=== PATIENT | female | born 1955 | race Caucasian/White ===

== ENCOUNTER 2019-11-11 11:13 | Inpatient (IN) | payer MEDICARE, OTHER ==
[~2019-11-11] VITALS: Ht 175.3 cm; Wt 83.7 kg
[2019-11-11] MEDS ORDERED: dilTIAZem 25 MG/5 ML VIAL IV ONE ×2 (11:15→11:30)
[2019-11-11] MEDS ORDERED: SODIUM CHLORIDE 0.9% 1,000 ML IV ONE (11:23)
[2019-11-11] MEDS ORDERED: AMIODARONE HCL 150 MG in D5W 5% 100 ML IV ONE (11:30)
[2019-11-11] MEDS ORDERED: AMIODARONE HCL 900 MG in DEXTROSE 500 ML IV SCH ×2 (11:30→17:30)
[2019-11-11] MEDS ORDERED: LORazepam 2MG/ML-1ML VIAL IV ONE (11:30)
[2019-11-11 11:44] LABS: Basophils # (auto) 0 10 ^3/uL (0-0.2); Basophils % (auto) 0.8 % (0.0-2.0); Eosinophils # (auto) 0.1 10 ^3/uL (0-0.8); Eosinophils % (auto) 1.4 % (0.0-7.0); Hematocrit 37.4 % (36.0-46.0); Hemoglobin 12.6 g/dL (12.2-16.2); Lymphocytes # (auto) 1.6 10 ^3/uL (0.4-5.4); Mean Corpuscular Hemoglobin 30.7 pg (28.0-32.0); Mean Corpuscular Hgb Conc. 33.5 g/dL (32.0-36.0); Mean Corpuscular Volume 91.5 fL (80.0-100.0); Monocytes # (auto) 0.4 10 ^3/uL (0-1.3); Monocytes % (auto) 7.2 % (0.0-12.0); Neutrophils # (auto) 3.3 10 ^3/uL (1.6-8.6); Neutrophils % (auto) 60.6 % (37.0-80.0); Nucleated Red Blood Cells % 0.1 %; Platelet Count (auto) 188 10^3/uL (140-450); Red Blood Cells 4.09 10^6/uL (4.0-5.20); Red Cell Distribution Width 13.8 % (11.8-14.3); White Blood Cell 5.4 10^3/uL (4.4-10.8)
[2019-11-11 12:05] LABS: Albumin 3.2 g/dL (3.4-5.0); Anion Gap 10 (5-15); Blood Urea Nitrogen 19 mg/dL (7-18); Calcium 8.5 mg/dL (8.5-10.1); Carbon Dioxide 22 mmol/L (21-32); Chloride 109 mmol/L (98-107); Potassium 3.5 mmol/L (3.5-5.1); Sodium 141 mmol/L (136-145)
[2019-11-11 12:13] LABS: Alanine Aminotransferase 23 U/L (13-56); Alkaline Phosphatase 105 U/L (45-117); Aspartate Aminotransferase 16 U/L (15-37); Bilirubin, Total 0.4 mg/dL (0.2-1.0); GFR African American 104 mL/min; GFR Non-African American 86 mL/min; Glucose 119 mg/dL (74-106); Total Protein 6.9 g/dL (6.4-8.2)
[2019-11-11 13:27] LABS: Urine Bacteria FEW /hpf (None Seen); Urine Blood Negative /uL (Negative); Urine Mucus FEW (None Seen); Urine Specific Gravity 1.009 (1.001-1.035); Urine WBC 11 /hpf (0 - 5)
[2019-11-11] MEDS ORDERED: ACETAMINOPHEN 500 MG TAB PO PRN (13:45)
[2019-11-11] MEDS ORDERED: NITROGLYCERIN 0.4 MG SL TAB SL PRN (13:45)
[2019-11-11] MEDS ORDERED: MORPHINE SULF INJ 2 MG/ML SYRINGE 1ML IV PRN (13:45)
[2019-11-11] MEDS ORDERED: PROMETHAZINE HCL 25 MG/ML 1ML IV PRN (13:45)
[2019-11-11] MEDS ORDERED: traMADol HCL 50 MG TAB PO PRN (13:45)
[2019-11-11] MEDS ORDERED: METOPROLOL TARTRATE 25 MG TAB PO ONE (13:45)
[2019-11-11] MEDS ORDERED: AMIODARONE HCL 200 MG TAB PO ONE (13:45)
[2019-11-11] MEDS ORDERED: TEMAZEPAM 15 MG CAP PO PRN (13:45)
[2019-11-11 14:43] LABS: CRP High Sensitivity 0.24 mg/dL (< 0.3)
--- NOTE | 2019-11-11 14:56 | NUR ---
PATIENT ADMITTED TO FLOOR FROM E.R., NO DISTRESS NOTED. TELE 2, SR IN THE 70'S. PT REPORT NO PAIN AT THIS TIME. PT ORIENTED TO UNIT AND CALL LIGHT. BED IN LOWEST LOCKED POSITION, SIDE RAILS UP X2. VITALS:113/67, HR 63, 02 100%, RR 18, TEMP 98.1. WILL CONTINUE TO MONITOR.
[2019-11-11 14:58] VITALS: BP 113/67
[2019-11-11] MEDS: SODIUM CHLORIDE 0.9% 1,000 ML IV SCH (16:33)
[2019-11-11 16:42] VITALS: BP 95/55
[2019-11-11 17:54] VITALS: BP 95/55
--- NOTE | 2019-11-11 18:07 | NUR ---
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 REASSESSED HR, HR 60BPM. PT RESTING COMFORTABLY IN BED. WILL CONTINUE TO MONITOR.
[2019-11-11] MEDS ORDERED: INFLUENZA QUAD 2019-2020 0.5ml SYRG IM ONE (18:15)
[2019-11-11] MEDS ORDERED: PNEUMOCOCCAL VACC POLYS 25 MCG/0.5 ML VIAL IM ONE (18:15)
[2019-11-11 20:00] VITALS: BP 112/52
--- NOTE | 2019-11-11 20:58 | NUR ---
PATIENT REFUSING FLU AND PNEUMONIA VACCINE AT THE MOMENT. PATIENT STATED " I WANT IT TOMORROW, I AM TIRED CAN I GET A SLEEPING PILL." PATIENT HAS RESTORIL PRN PER PATIENT NO ALLERGIC REACTION TO MEDICATION
[2019-11-11] MEDS: METOPROLOL TARTRATE 25 MG TAB PO SCH (21:39)
[2019-11-11 22:05] VITALS: BP 104/53
--- NOTE | 2019-11-12 00:53 | NUR ---
IV removal/ IV insertion upon entering room patient iv was pulled out per patient "i pulled it while i was getting up to use the restroom im sorry." IV catheter fully intact. Pressure dressing applied to site. patient reports no pain at iv site. New IV access obtained, via clean sterile technique by inserting 20 gauge catheter at left FA after 2 attempt. IV secured properly. No trauma to site. Patient tolerated well.
[2019-11-12] MEDS: SODIUM CHLORIDE 0.9% 1,000 ML IV SCH (02:59)
--- NOTE | 2019-11-12 04:37 | NUR ---
ekg taken per md orders and placed in chart. per patient she has no home medications. informed patient if she would like her flu and pneumonia vaccine patient stated " not right now" will attempt later.
[2019-11-12 05:34] VITALS: BP 119/72
--- NOTE | 2019-11-12 06:14 | NUR ---
attempted to give patient flu and pneumonia vaccine upon entering room and educating patient on medication patient verbalized " i want to get it until later" when asked patient why patient stated "i am tired" will endorse care to dayshift RN.
--- NOTE | 2019-11-12 06:41 | NUR ---
patient rounds patient is in bed sleeping. bilateral chest rise and fall rr 16 shows no sign of distress sob or pain. bed in low position call light within reach. bed alarm on
--- NOTE | 2019-11-12 06:57 | NUR ---
report given to dayshift rn. patient denies sob.distress or pain
[2019-11-12 09:00] VITALS: BP 142/70
[2019-11-12] MEDS: ASPirin 81 mg TAB PO SCH (09:08)
[2019-11-12] MEDS: METOPROLOL TARTRATE 25 MG TAB PO SCH ×2 (09:08→22:13)
[2019-11-12] MEDS: ENOXAPARIN SOD 40 MG/0.4 ML SYRINGE SC SCH (09:09)
--- NOTE | 2019-11-12 09:14 | NUR ---
HOME MEDS ASKED PATIENT WHAT MEDICATIONS SHE TAKES AT HOME, PT REPORTS SHE TAKES 2 MEDICATIONS, BOTH ARE ANTIDEPRESSANTS, BUT SHE IS UNABLE TO REMEMBER THE NAMES.
[2019-11-12] MEDS ORDERED: cefTRIAXone 1GM/50ML D5W 50 ML IV ONE (12:30)
[2019-11-12 13:00] VITALS: BP 122/66
[2019-11-12 17:00] VITALS: BP 125/67
--- NOTE | 2019-11-12 19:34 | NUR ---
Opening Shift Note Assumed care of patient, awake and alert. No S/S of distress/SOB or pain. Instructed on POC and to call for assist PRN, will continue to monitor for changes Q1hr and PRN. bed in low position and call light within reach. bed alarm on.
[2019-11-12 20:00] VITALS: BP 113/49
--- NOTE | 2019-11-12 20:18 | NUR ---
applied new ekg stickers to patient.
[2019-11-12] MEDS ORDERED: INFLUENZA QUAD 2019-2020 0.5ml SYRG IM ONE (20:40)
--- NOTE | 2019-11-12 20:50 | NUR ---
flu vaccine given patient tolerated well. patient reports no previous allergic reaction. medication override due to medication not appearing on pyxis, per admission discharge rn kaitlin okay to override medication as pharmacy has left for the night. pnuemonia vaccine not available will endorse care to dayshift rn.
[2019-11-12 21:00] VITALS: BP 114/60
[2019-11-13 04:00] VITALS: BP 146/76
--- NOTE | 2019-11-13 07:15 | NUR ---
report given to dayshift rn patient denies sob/distress or pain
[2019-11-13 09:00] VITALS: BP 141/78
[2019-11-13] MEDS ORDERED: cefTRIAXone 1GM/50ML D5W 50 ML IV SCH (09:00)
[2019-11-13] MEDS: ASPirin 81 mg TAB PO SCH (09:30)
[2019-11-13] MEDS: ENOXAPARIN SOD 40 MG/0.4 ML SYRINGE SC SCH (09:31)
[2019-11-13] MEDS: METOPROLOL TARTRATE 25 MG TAB PO SCH (09:31)
--- NOTE | 2019-11-13 10:34 | NUR ---
DR MONTOYA SAW PATIENT AND DISCUSSED POC. NOTIFIED MD VILLEGAS CARVEDILOL HELD, HR [address] LUJAN REPORTS TO GIVE IT NOW, AND ONLY HOLD IF HR IS LESS THAN 50 BPM.
--- NOTE | 2019-11-13 10:49 | NUR ---
SPOKE WITH DR MONTOYA AGAIN, REPORTS TO RI CARVEDILOL AND START MULTAQ.
--- NOTE | 2019-11-13 10:58 | NUR ---
UNABLE TO PLACE ORDR FOR MULTAQ, CALLED INPATIENT PHARMACY. PHARMACY REPORTS TO PUT IN PT OWN MEDICATION AND LEAVE NOTE WITH THE NAME OF MED, DOSAGE AND FREQUENCY. MED PUT IN, PHARMACY REPORTS THEY WILL EDIT IT SO APPROPRIATE.
[2019-11-13] MEDS ORDERED: DRONEDARONE HCL 400 MG TAB PO ONE (12:00)
[2019-11-13 13:00] VITALS: BP 133/67
[2019-11-13 15:23] VITALS: BP 141/78
--- NOTE | 2019-11-13 16:27 | NUR ---
Discharge instructions given as ordered. Encourage to follow up with PMD and Dr Jaime as instructed. All questions and concerns addressed. Patient verbalized understanding. Medication reconciliation form completed and copy given to patient. Needed vaccine given. IV removed with catheter intact, pressure dressing applied. Telemetry unit returned to ICU. Patient taken to vehicle via wheelchair with all personal belongings, accompanied by staff and friends. No distress noted at time of departure.
[2019-11-13] MEDS ORDERED: DRONEDARONE HCL 400 MG TAB PO SCH (22:00)
== END 2019-11-13 16:00 | disposition home or self-care (01) | DRG 309 ==
LOC: EDBD 11:13 → ER 11:13 → TELE-EAST 11:14
PROVIDERS: ADMIT Internal Medicine; ATTEND Internal Medicine
DX: I47.1 Supraventricular tachycardia (principal); N39.0 Urinary tract infection, site not specified; I10 Essential (primary) hypertension; F31.9 Bipolar disorder, unspecified; F15.10 Other stimulant abuse, uncomplicated; E66.9 Obesity, unspecified; Z23 Encounter for immunization
CPT/HCPCS: 36415; 71045; 80053; 81001; 82550; 83880; 84443; 84484; 85025; 85379; 86141; 93005; 96361; 96374; 99291; G0378; J0696; J7060

== ENCOUNTER → 2019-12-22 | Emergency (ER) | payer MEDICARE, MEDICAID ==
[~2019-12-22] VITALS: Ht 175.3 cm; Wt 108.9 kg
[~2019-12-22] MED LIST: SODIUM CHLORIDE 0.9% 1,000 ML IV ONE
[2019-12-22 13:26] LABS: Basophils # (auto) 0.1 10 ^3/uL (0-0.2); Basophils % (auto) 0.8 % (0.0-2.0); Eosinophils # (auto) 0.1 10 ^3/uL (0-0.8); Eosinophils % (auto) 1.1 % (0.0-7.0); Hematocrit 39.2 % (36.0-46.0); Hemoglobin 13.2 g/dL (12.2-16.2); Lymphocytes # (auto) 1.4 10 ^3/uL (0.4-5.4); Lymphocytes % (auto) 22.2 % (10.0-50.0); Mean Corpuscular Hemoglobin 30.9 pg (28.0-32.0); Mean Corpuscular Hgb Conc. 33.6 g/dL (32.0-36.0); Monocytes # (auto) 0.5 10 ^3/uL (0-1.3); Neutrophils # (auto) 4.3 10 ^3/uL (1.6-8.6); Neutrophils % (auto) 67.9 % (37.0-80.0); Nucleated Red Blood Cells % 0.1 %; Platelet Count (auto) 218 10^3/uL (140-450); Red Blood Cells 4.26 10^6/uL (4.0-5.20); Red Cell Distribution Width 14.1 % (11.8-14.3); White Blood Cell 6.3 10^3/uL (4.4-10.8)
[2019-12-22 13:51] LABS: Albumin 3.2 g/dL (3.4-5.0); Anion Gap 5 (5-15); BUN/Creatinine Ratio 21.2; Blood Urea Nitrogen 14 mg/dL (7-18); Calcium 8.5 mg/dL (8.5-10.1); Carbon Dioxide 24 mmol/L (21-32); Chloride 111 mmol/L (98-107); GFR African American 117 mL/min; GFR Non-African American 96 mL/min; Glucose 95 mg/dL (74-106); Potassium 3.6 mmol/L (3.5-5.1); Sodium 140 mmol/L (136-145)
[2019-12-22 13:56] LABS: Alanine Aminotransferase 31 U/L (13-56); Alkaline Phosphatase 93 U/L (45-117); Aspartate Aminotransferase 20 U/L (15-37); Bilirubin, Total 0.3 mg/dL (0.2-1.0); Total Protein 6.7 g/dL (6.4-8.2)
[2019-12-22 15:08] LABS: Urine Bacteria FEW /hpf (None Seen); Urine Blood Negative /uL (Negative); Urine Specific Gravity 1.012 (1.001-1.035); Urine WBC 9 /hpf (0 - 5)
[2019-12-22 16:10] VITALS: BP 113/63
== END | disposition home or self-care (01) ==
LOC: EDUNIT# 12:40 → EDBD 12:50 → ER 12:50
DX: I47.1 Supraventricular tachycardia (principal); N39.0 Urinary tract infection, site not specified; I10 Essential (primary) hypertension
CPT/HCPCS: 36415; 71045; 80053; 81001; 84484; 85025; 93005; 99291